=== PATIENT | female | born 1980 | race Caucasian/White ===

== ENCOUNTER 2018-09-24 16:59 | Emergency (ER) | payer OTHER ==
[~2018-09-24] VITALS: Ht 162.5 cm; Wt 72.6 kg
--- NOTE | ~2018-09-24 | EKG ---
[place], [place] ELECTROCARDIOGRAM REPORT NAME: HIPOLITO PAULINO UNIT #: [id number] ROOM: DOCTOR: ARIAN DRAFT REPORT BIRTHDATE: [birth year] [facility] Test Date: 2018-09-24 Test Time: 17:01:48 Pat Name: HIPOLITO PAULINO Department: Room: Gender: F [employer]: : 1980 Requested By: LANNY THORPE Order Number: [id number] Reading MD: Jorge Gonzalez MD Measurements Intervals [place] Rate: 98 P: 63 AR: 125 QRS: 114 QRSD: 87 T: 41 QT: 370 QTc: 473 Interpretive Statements Sinus rhythm Probable right ventricular hypertrophy Baseline wander in lead(s) V2 Electronically Signed On 09-27-2018 7:14:23 PDT by Jorge Gonzalez MD CM:EKGRPT:ELECTROCARDIOGRAM REPORT [id number] LANNY DON DRAFT REPORT LANNY THORPE MD
--- NOTE | ~2018-09-24 | EKG ---
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
[2018-09-24 17:18] LABS: BASO % 0.4 % (0.0-1.0); EOS # 0.1 10*3/uL (0.0-0.4); HEMATOCRIT 41.6 % (37.0-47.0); LYMPH # 2.5 10*3/uL (1.3-4.4); LYMPH % 31.7 % (27.0-41.0); MEAN CELL VOLUME 89.1 fl (81.0-99.0); MEAN CORPUSCULAR HGB CONC 33.7 g/dl (33.0-37.0); MEAN PLATELET VOLUME 9.2 fl (9.6-12.3); MONO # 0.4 10*3/uL (0.1-1.0); MONO % 5.1 % (3.0-9.0); NEUT # 4.9 10*3/uL (2.3-7.9); NEUT % 61.7 % (47.0-73.0); PLATELET COUNT AUTOMATED 266 10*3/uL (130-400); RED BLOOD COUNT 4.67 10*6/uL (4.10-5.10); RED CELL DISTRI WIDTH 12.9 % (0-14.5)
[2018-09-24 17:30] LABS: ACT PARTIAL THROMBO TIME 24.3 SECONDS (20.0-32.1); INTERNATIONAL NORM RATIO 0.9 (2.0-3.5)
[2018-09-24 17:38] LABS: ALBUMIN 3.8 gm/dl (3.1-4.5); ALKALINE PHOSPHATASE 70 U/L (45-117); BUN 12 mg/dl (7-24); CHLORIDE 107 mmol/L (98-107); CREATININE 1.04 mg/dL (0.55-1.02); POTASSIUM 4.1 mmol/L (3.5-5.1); SGOT/AST 16 IU/L (3-35); SGPT/ALT 20 U/L (12-78); SODIUM 140 mmol/L (136-145); TOTAL PROTEIN 6.8 gm/dL (6.4-8.2)
[2018-09-24 17:46] LABS: TROPONIN I < 0.015 ng/ml (<0.045)
[2018-09-24 20:15] VITALS: BP 111/72
[2018-10-10] MEDS ORDERED: NAPROSYN500 MG PO (14:09)
== END 2018-09-24 20:43 | disposition home or self-care (01) ==
LOC: ED 16:59
PROVIDERS: Emergency Medicine
DX: R07.89 Other chest pain (principal); R06.02 Shortness of breath; R11.0 Nausea; R61 Generalized hyperhidrosis; R51 Headache; R20.0 Anesthesia of skin; F17.200 Nicotine dependence, unspecified, uncomplicated; Z88.8 Allergy status to other drugs, medicaments and biological substances; Z86.79 Personal history of other diseases of the circulatory system

== ENCOUNTER 2018-10-08 00:17 | Emergency (ER) | payer OTHER ==
[~2018-10-08] VITALS: Ht 162.5 cm; Wt 75.3 kg
[2018-10-08 00:20] VITALS: BP 115/68
[2018-10-08 01:19] LABS: BILIRUBIN NEGATIVE (NEGATIVE); BLOOD 1+ (NEGATIVE); CLARITY CLOUDY (CLEAR); COLOR YELLOW (YELLOW); GLUCOSE NEGATIVE (NEGATIVE); KETONE NEGATIVE (NEGATIVE); LEUKO ESTERASE 2+ (NEGATIVE); NITRITE POSITIVE (NEGATIVE)
[2018-10-08 01:31] LABS: BACTERIA 3+; WBC TNTC wbc/hpf (0-5)
[2018-10-08] MEDS ORDERED: CIPRO500 MG PO (01:39)
[2018-10-08] MEDS ORDERED: PYRIDIUM200 M1 PO (01:39)
[2018-10-10] MEDS ORDERED: NAPROSYN500 MG PO (14:09)
== END 2018-10-08 01:37 ==
LOC: ED 00:17
PROVIDERS: Emergency Medicine
DX: N39.0 Urinary tract infection, site not specified (principal); Z88.8 Allergy status to other drugs, medicaments and biological substances

== ENCOUNTER 2019-04-14 13:25 | Emergency (ER) | payer SELFPAY ==
[~2019-04-14] VITALS: Ht 162.5 cm; Wt 76.7 kg
[~2019-04-14 13:25] MED LIST: CIPRO500 MG PO; NAPROSYN500 MG PO; PYRIDIUM200 M1 PO
[2019-04-14 13:26] VITALS: BP 110/85
[2019-04-14] MEDS ORDERED: Motrin,Rufen800 MG PO (15:38)
[2019-04-14] MEDS ORDERED: MEDROL DOSEPAK4 MG PO (15:38)
[2019-04-14] MEDS ORDERED: CYCLOBENZAPRINE5 M3 PO (15:38)
== END 2019-04-14 15:43 | disposition home or self-care (01) ==
LOC: ED 13:25
DX: M54.5 Low back pain (principal); Z88.8 Allergy status to other drugs, medicaments and biological substances; Z79.2 Long term (current) use of antibiotics; Z79.899 Other long term (current) drug therapy

== ENCOUNTER 2019-06-13 14:41 | Emergency (ER) | payer SELFPAY ==
[~2019-06-13] VITALS: Ht 162.5 cm; Wt 75.7 kg
[~2019-06-13 14:41] MED LIST changes: +CYCLOBENZAPRINE5 M3 PO; +MEDROL DOSEPAK4 MG PO; +Motrin,Rufen800 MG PO
[2019-06-13 14:49] VITALS: BP 146/96
[2019-06-13 15:50] VITALS: BP 119/84
[2019-06-13 16:13] VITALS: BP 127/88
[2019-06-13 17:59] LABS: BASO # 0.1 10*3/uL (0.0-0.1); BASO % 0.6 % (0.0-1.0); EOS # 1.1 10*3/uL (0.0-0.4); EOS % 13.8 % (1.0-4.0); HEMATOCRIT 39.6 % (37.0-47.0); LYMPH # 2.5 10*3/uL (1.3-4.4); LYMPH % 31.1 % (27.0-41.0); MEAN CORPUSCULAR HGB CONC 32.8 g/dl (33.0-37.0); MEAN PLATELET VOLUME 8.8 fl (9.6-12.3); MONO # 0.4 10*3/uL (0.1-1.0); MONO % 5.2 % (3.0-9.0); NEUT % 48.9 % (47.0-73.0); RED BLOOD COUNT 4.48 10*6/uL (4.10-5.10); RED CELL DISTRI WIDTH 12.7 % (0-14.5); WHITE BLOOD COUNT 8.1 10*3/uL (4.8-10.8)
[2019-06-13 18:10] VITALS: BP 126/84
[2019-06-13 18:16] LABS: ALBUMIN 3.3 gm/dl (3.1-4.5); ALKALINE PHOSPHATASE 73 U/L (45-117); BUN 11 mg/dl (7-24); CHLORIDE 109 mmol/L (98-107); CREATININE 0.73 mg/dL (0.55-1.02); LIPASE 315 U/L (73-393); POTASSIUM 3.8 mmol/L (3.5-5.1); SGOT/AST 10 IU/L (3-35); SGPT/ALT 18 U/L (12-78); SODIUM 138 mmol/L (136-145); TOTAL PROTEIN 6.3 gm/dL (6.4-8.2)
[2019-06-13 18:34] LABS: ACT PARTIAL THROMBO TIME 27.7 SECONDS (20.0-32.1)
[2019-06-13 18:56] LABS: MEAN CELL VOLUME 88.4 fl (81.0-99.0)
[2019-06-13 18:57] LABS: PLATELET COUNT AUTOMATED 292 10*3/uL (130-400)
[2019-06-13 19:36] VITALS: BP 107/68
[2019-06-13 21:08] VITALS: BP 110/68
== END 2019-06-13 21:13 | disposition left against medical advice (07) ==
LOC: ED 14:41 → EDHOLD 21:06 → ED 21:13
PROVIDERS: Emergency Medicine; Nurse Practitioner Family
DX: R07.9 Chest pain, unspecified (principal); M79.602 Pain in left arm; R06.02 Shortness of breath; F17.200 Nicotine dependence, unspecified, uncomplicated; Z88.8 Allergy status to other drugs, medicaments and biological substances

== ENCOUNTER 2019-08-07 00:10 | Emergency (ER) | payer SELFPAY ==
[2019-08-07 00:16] VITALS: BP 124/80
[2019-08-07 01:07] LABS: BASO % 0.2 % (0.0-1.0); EOS % 0.1 % (1.0-4.0); HEMATOCRIT 39.8 % (37.0-47.0); HEMOGLOBIN 13.1 g/dl (12.0-16.0); LYMPH # 1.9 10*3/uL (1.3-4.4); LYMPH % 11.7 % (27.0-41.0); MEAN CELL VOLUME 88.8 fl (81.0-99.0); MEAN CORPUSCULAR HGB 29.2 pg (27.0-31.0); MEAN CORPUSCULAR HGB CONC 32.9 g/dl (33.0-37.0); MEAN PLATELET VOLUME 8.8 fl (9.6-12.3); MONO # 0.8 10*3/uL (0.1-1.0); MONO % 4.7 % (3.0-9.0); NEUT # 13.5 10*3/uL (2.3-7.9); NEUT % 82.5 % (47.0-73.0); PLATELET COUNT AUTOMATED 340 10*3/uL (130-400); RED BLOOD COUNT 4.48 10*6/uL (4.10-5.10); RED CELL DISTRI WIDTH 12.6 % (0-14.5); WHITE BLOOD COUNT 16.4 10*3/uL (4.8-10.8)
[2019-08-07 01:21] LABS: ALBUMIN 3.4 gm/dl (3.1-4.5); ALKALINE PHOSPHATASE 77 U/L (45-117); BUN 12 mg/dl (7-24); CHLORIDE 108 mmol/L (98-107); CREATININE 0.91 mg/dL (0.55-1.02); POTASSIUM 3.8 mmol/L (3.5-5.1); SGOT/AST 8 IU/L (3-35); SGPT/ALT 17 U/L (12-78); SODIUM 139 mmol/L (136-145); TOTAL PROTEIN 6.5 gm/dL (6.4-8.2)
[2019-08-07] MEDS ORDERED: TESSALON PERLE100 M1 PO (03:11)
== END 2019-08-07 03:15 | disposition home or self-care (01) ==
LOC: ED 00:10
PROVIDERS: Emergency Medicine
DX: J40 Bronchitis, not specified as acute or chronic (principal); G43.909 Migraine, unspecified, not intractable, without status migrainosus; F17.200 Nicotine dependence, unspecified, uncomplicated; Z88.8 Allergy status to other drugs, medicaments and biological substances

== ENCOUNTER 2019-10-09 20:14 | Emergency (ER) | payer SELFPAY ==
[~2019-10-09] VITALS: Ht 162.5 cm; Wt 79.4 kg
[~2019-10-09 20:14] MED LIST changes: +TESSALON PERLE100 M1 PO
[2019-10-09 20:22] VITALS: BP 136/80
[2019-10-09 20:54] LABS: BASO # 0.1 10*3/uL (0.0-0.1); BASO % 0.6 % (0.0-1.0); EOS % 0.5 % (1.0-4.0); HEMATOCRIT 42.5 % (37.0-47.0); LYMPH # 3.3 10*3/uL (1.3-4.4); LYMPH % 37.7 % (27.0-41.0); MEAN CELL VOLUME 85.9 fl (81.0-99.0); MEAN CORPUSCULAR HGB 28.5 pg (27.0-31.0); MEAN CORPUSCULAR HGB CONC 33.2 g/dl (33.0-37.0); MEAN PLATELET VOLUME 8.5 fl (9.6-12.3); MONO # 0.6 10*3/uL (0.1-1.0); MONO % 7.3 % (3.0-9.0); NEUT # 4.7 10*3/uL (2.3-7.9); NEUT % 53.6 % (47.0-73.0); PLATELET COUNT AUTOMATED 323 10*3/uL (130-400); RED BLOOD COUNT 4.95 10*6/uL (4.10-5.10); RED CELL DISTRI WIDTH 12.8 % (0-14.5); WHITE BLOOD COUNT 8.7 10*3/uL (4.8-10.8)
[2019-10-09 21:17] LABS: ALBUMIN 4.1 gm/dl (3.1-4.5); ALKALINE PHOSPHATASE 84 U/L (45-117); BUN 11 mg/dl (7-24); CHLORIDE 110 mmol/L (98-107); CREATININE 0.88 mg/dL (0.55-1.02); LIPASE 45 U/L (73-393); POTASSIUM 3.3 mmol/L (3.5-5.1); SGOT/AST 16 IU/L (3-35); SGPT/ALT 21 U/L (12-78); SODIUM 139 mmol/L (136-145)
[2019-10-09 21:49] LABS: BACTERIA 1+; BILIRUBIN NEGATIVE (NEGATIVE); BLOOD NEGATIVE (NEGATIVE); CLARITY SL CLOUDY (CLEAR); COLOR YELLOW (YELLOW); EPITHELIAL CELLS TNTC; GLUCOSE NEGATIVE (NEGATIVE); KETONE NEGATIVE (NEGATIVE); LEUKO ESTERASE NEGATIVE (NEGATIVE); MUCOUS 1+; NITRITE NEGATIVE (NEGATIVE); UROBILINOGEN 0.2 E.U./dl (0.2-1.0)
== END 2019-10-10 | disposition home or self-care (01) ==
LOC: ED 20:14
PROVIDERS: Nurse Practitioner Family
DX: K29.00 Acute gastritis without bleeding (principal); E87.6 Hypokalemia; F32.9 Major depressive disorder, single episode, unspecified; G43.909 Migraine, unspecified, not intractable, without status migrainosus; R56.9 Unspecified convulsions; Z88.8 Allergy status to other drugs, medicaments and biological substances; Z79.899 Other long term (current) drug therapy

== ENCOUNTER 2019-10-21 19:17 | Emergency (ER) | payer SELFPAY ==
[2019-10-21 19:50] VITALS: BP 142/86
[2019-10-21 22:16] LABS: BASO # 0.1 10*3/uL (0.0-0.1); BASO % 0.8 % (0.0-1.0); EOS # 0.1 10*3/uL (0.0-0.4); HEMATOCRIT 41.1 % (37.0-47.0); LYMPH # 2.7 10*3/uL (1.3-4.4); LYMPH % 37.6 % (27.0-41.0); MEAN CELL VOLUME 87.6 fl (81.0-99.0); MEAN CORPUSCULAR HGB 28.6 pg (27.0-31.0); MEAN CORPUSCULAR HGB CONC 32.6 g/dl (33.0-37.0); MEAN PLATELET VOLUME 9.2 fl (9.6-12.3); MONO # 0.5 10*3/uL (0.1-1.0); MONO % 7.2 % (3.0-9.0); NEUT # 3.7 10*3/uL (2.3-7.9); NEUT % 52.8 % (47.0-73.0); PLATELET COUNT AUTOMATED 295 10*3/uL (130-400); RED BLOOD COUNT 4.69 10*6/uL (4.10-5.10); WHITE BLOOD COUNT 7.1 10*3/uL (4.8-10.8)
[2019-10-21 22:25] LABS: BUN 11 mg/dl (7-24); CHLORIDE 108 mmol/L (98-107); CREATININE 0.85 mg/dL (0.55-1.02); POTASSIUM 3.3 mmol/L (3.5-5.1); SODIUM 137 mmol/L (136-145)
[2019-10-21] MEDS ORDERED: IBU800 MG PO (22:52)
[2019-10-21] MEDS ORDERED: TRAMADOL HCL50 MG PO (22:52)
== END 2019-10-21 23:00 | disposition home or self-care (01) ==
LOC: ED 19:17
PROVIDERS: Emergency Medicine
DX: M16.11 Unilateral primary osteoarthritis, right hip (principal); Z88.8 Allergy status to other drugs, medicaments and biological substances; Z79.899 Other long term (current) drug therapy

== ENCOUNTER 2019-10-27 11:34 | Emergency (ER) | payer SELFPAY ==
[~2019-10-27] VITALS: Ht 162.5 cm; Wt 79.4 kg
[~2019-10-27 11:34] MED LIST changes: +IBU800 MG PO; +TRAMADOL HCL50 MG PO
[2019-10-27 11:41] VITALS: BP 127/79
[2019-10-27 12:33] LABS: BASO # 0.1 10*3/uL (0.0-0.1); BASO % 1.1 % (0.0-1.0); EOS # 0.2 10*3/uL (0.0-0.4); EOS % 2.7 % (1.0-4.0); HEMATOCRIT 39.5 % (37.0-47.0); LYMPH # 2.3 10*3/uL (1.3-4.4); LYMPH % 36.7 % (27.0-41.0); MEAN CELL VOLUME 88.8 fl (81.0-99.0); MEAN CORPUSCULAR HGB 29.2 pg (27.0-31.0); MEAN CORPUSCULAR HGB CONC 32.9 g/dl (33.0-37.0); MEAN PLATELET VOLUME 8.7 fl (9.6-12.3); MONO # 0.4 10*3/uL (0.1-1.0); MONO % 6.7 % (3.0-9.0); NEUT # 3.4 10*3/uL (2.3-7.9); NEUT % 52.5 % (47.0-73.0); PLATELET COUNT AUTOMATED 310 10*3/uL (130-400); RED BLOOD COUNT 4.45 10*6/uL (4.10-5.10); WHITE BLOOD COUNT 6.4 10*3/uL (4.8-10.8)
[2019-10-27 12:48] LABS: ALBUMIN 3.4 gm/dl (3.1-4.5); ALKALINE PHOSPHATASE 74 U/L (45-117); BUN 12 mg/dl (7-24); CHLORIDE 111 mmol/L (98-107); CREATININE 0.77 mg/dL (0.55-1.02); SGOT/AST 16 IU/L (3-35); SGPT/ALT 18 U/L (12-78); SODIUM 139 mmol/L (136-145); TOTAL PROTEIN 6.6 gm/dL (6.4-8.2)
[2019-10-27 14:44] LABS: BILIRUBIN NEGATIVE (NEGATIVE); BLOOD NEGATIVE (NEGATIVE); CLARITY CLEAR (CLEAR); COLOR YELLOW (YELLOW); GLUCOSE NEGATIVE (NEGATIVE); KETONE NEGATIVE (NEGATIVE); LEUKO ESTERASE NEGATIVE (NEGATIVE); NITRITE NEGATIVE (NEGATIVE); SPECIFIC GRAVITY 1.025 (1.005-1.030); UROBILINOGEN 0.2 E.U./dl (0.2-1.0)
[2019-10-27 14:45] LABS: BACTERIA 1+; EPITHELIAL CELLS 31-40
[2019-10-27] MEDS ORDERED: NORCO 5-325 TA1 EACH PO (14:57)
[2019-10-27] MEDS ORDERED: MEDROL DOSEPAK4 MG PO (14:57)
== END 2019-10-27 15:08 | disposition home or self-care (01) ==
LOC: ED 11:34
PROVIDERS: Physician Assistant
DX: M25.551 Pain in right hip (principal); M25.552 Pain in left hip; F32.9 Major depressive disorder, single episode, unspecified; G43.909 Migraine, unspecified, not intractable, without status migrainosus; M19.90 Unspecified osteoarthritis, unspecified site; Z79.899 Other long term (current) drug therapy

== ENCOUNTER 2019-11-28 14:44 | Emergency (ER) | payer SELFPAY ==
[~2019-11-28] VITALS: Ht 162.5 cm; Wt 79.4 kg
[~2019-11-28 14:44] MED LIST changes: +NORCO 5-325 TA1 EACH PO
[2019-11-28 14:48] VITALS: BP 139/89
[2019-11-28] MEDS ORDERED: ZOFRAN4 MG PO (16:44)
== END 2019-11-28 16:49 | disposition home or self-care (01) ==
LOC: ED 14:44
DX: B34.9 Viral infection, unspecified (principal); F32.9 Major depressive disorder, single episode, unspecified; G43.909 Migraine, unspecified, not intractable, without status migrainosus; M19.90 Unspecified osteoarthritis, unspecified site; F17.200 Nicotine dependence, unspecified, uncomplicated; Z20.828 Contact with and (suspected) exposure to other viral communicable diseases; Z88.8 Allergy status to other drugs, medicaments and biological substances; Z79.899 Other long term (current) drug therapy